=== PATIENT | female | born 1985 | race Caucasian/White ===

== ENCOUNTER 2016-04-20 09:21 | Inpatient (IN) | payer BC ==
[~2016-04-20] VITALS: Ht 165.1 cm; Wt 100.5 kg
[2016-06-13] VITALS (54 sets, daily range): BP systolic 91–133; BP diastolic 47–83; PULSE 59–123; TEMP 97.9–99.5
[2016-06-13] MEDS ORDERED: GLUCOPHAGE500 MG/TAB PO (07:39)
[2016-06-13] MEDS ORDERED: PRENATAL1 TA7 PO (07:40)
[2016-06-13 08:14] LABS: BASO % 0.4 % (0.0-2.0); EOS # 0.2 (0.0-0.7); EOS % 1.7 % (0-4.0); GRAN # 6.5 (1.4-6.5); GRAN % 66.4 % (42.2-75.2); HEMATOCRIT 36.8 % (37.0-47.0); HEMOGLOBIN 12.7 g/dl (12.5-16.0); LYMPH # 2.6 (1.2-3.4); LYMPH % 26.8 % (20.0-51.0); MEAN CELL VOLUME 90 fl (80.0-100.0); MEAN CORPUSCULAR HEMOGLOBIN 31 pg (27.0-31.0); MEAN CORPUSCULAR HGB CONC 35 g/dl (33.0-37.0); MEAN PLATELET VOLUME 11.9 fl (7.4-10.4); MONO # 0.4 (0.1-0.6); MONO % 4.2 % (1.7-9.3); PLATELET COUNT 186 K/mm3 (130-400); RED BLOOD COUNT 4.08 M/mm3 (4.10-5.30); REDCELL DISTRIBUTION WIDTH-CV 13.5 % (11.5-14.5); WHITE BLOOD COUNT 9.7 K/mm3 (4.8-10.8)
[2016-06-14 07:15] VITALS: BP 121/84; PULSE 75; TEMP 97.3
[2016-06-14 15:38] VITALS: BP 106/59; PULSE 67; TEMP 97.7
[2016-06-14 21:00] VITALS: BP 125/75; PULSE 78; TEMP 97.6
[2016-06-15] MEDS ORDERED: PERCOCET 325 MG1 TA2 PO (08:29)
[2016-06-15] MEDS ORDERED: IBU800 M1 PO (08:29)
[2016-06-15] MEDS ORDERED: BREASTPUMP (08:37)
[2016-06-15 09:30] VITALS: BP 120/80; PULSE 77; TEMP 98
== END 2016-06-15 14:15 | disposition home or self-care (01) | DRG 775 ==
LOC: LDRO 09:21 → EDSTATUS 06-11 10:52 → LDR 06-11 11:47 → LDRO 06-11 17:27 → LDR 06-13 07:02 → OB 06-13 07:02 → LDR 06-13 12:59 → OB 06-13 17:36
PROVIDERS: Obstetrics & Gynecology
PROC: 10D07Z6 Extraction of Products of Conception, Vacuum, Via Natural or Artificial Opening (ICD-10-PCS; principal; 2016-06-13)
PROC: 0KQM0ZZ Repair Perineum Muscle, Open Approach (ICD-10-PCS; 2016-06-13)
PROC: 3E033VJ Introduction of Other Hormone into Peripheral Vein, Percutaneous Approach (ICD-10-PCS; 2016-06-13)
DX: O48.0 Post-term pregnancy (principal); O75.81 Maternal exhaustion complicating labor and delivery; O70.1 Second degree perineal laceration during delivery; Z3A.40 40 weeks gestation of pregnancy; Z37.0 Single live birth
CPT/HCPCS: J2590; J2795; J7120

== ENCOUNTER → 2016-06-24 | Outpatient (CLI) | payer BC ==
[~2016-06-24] MED LIST: BREASTPUMP; GLUCOPHAGE500 MG/TAB PO; IBU800 M1 PO; PERCOCET 325 MG1 TA2 PO; PRENATAL1 TA7 PO
== END ==
LOC: OLC 11:06
DX: Z39.1 Encounter for care and examination of lactating mother (principal); Z71.89 Other specified counseling

== ENCOUNTER 2019-09-21 08:44 | Emergency (ER) | payer BC ==
[~2019-09-21] VITALS: Ht 165.1 cm; Wt 86.4 kg
[2019-09-21 08:53] VITALS: BP 124/81; TEMP 98.1
[2019-09-21] MEDS ORDERED: CALCIUM 600 PLU1 TAB PO (09:25)
[2019-09-21 09:42] LABS: BASO % 0.4 % (0.0-2.0); EOS # 0.2 (0.0-0.7); EOS % 2.8 % (0-4.0); GRAN # 4.7 (1.4-6.5); GRAN % 64.7 % (42.2-75.2); HEMATOCRIT 37.4 % (37.0-47.0); HEMOGLOBIN 12.6 g/dl (12.5-16.0); LYMPH # 1.9 (1.2-3.4); LYMPH % 26.4 % (20.0-51.0); MEAN CELL VOLUME 89 fl (80.0-100.0); MEAN CORPUSCULAR HEMOGLOBIN 30 pg (27.0-31.0); MEAN CORPUSCULAR HGB CONC 34 g/dl (33.0-37.0); MEAN PLATELET VOLUME 10.1 fl (7.4-10.4); MONO # 0.4 (0.1-0.6); MONO % 5.1 % (1.7-9.3); PLATELET COUNT 169 K/mm3 (130-400); REDCELL DISTRIBUTION WIDTH-CV 12.9 % (11.5-14.5)
[2019-09-21 10:05] LABS: ALBUMIN 4.2 gm/dL (3.5-5.0); BILIRUBIN,TOTAL 0.7 mg/dL (0.0-1.0); CREATININE, serum 0.51 (0.52-1.25); POTASSIUM 3.6 mmol/L (3.4-5.0); TOTAL PROTEIN 7.4 gm/dL (6.4-8.2)
[2019-09-21 11:40] VITALS: PULSE 82
== END 2019-09-21 11:40 | disposition home or self-care (01) ==
LOC: COL.ER 08:44
PROVIDERS: Emergency Medicine
DX: O20.0 Threatened abortion (principal); Z3A.13 13 weeks gestation of pregnancy; Z90.89 Acquired absence of other organs; Z79.84 Long term (current) use of oral hypoglycemic drugs

== ENCOUNTER → 2020-03-25 | Outpatient (CLI) | payer BC ==
[~2020-03-25] MED LIST changes: +CALCIUM 600 PLU1 TAB PO; +MOTRIN 600600 MG/TAB PO
== END | disposition still patient (30) ==
LOC: ZCOL.LAB 08:00
DX: Z20.828 Contact with and (suspected) exposure to other viral communicable diseases (principal)

== ENCOUNTER 2020-03-29 01:39 | Inpatient (IN) | payer BC ==
[2020-03-29] VITALS (13 sets, daily range): BP systolic 117–139; BP diastolic 58–94; PULSE 62–103; TEMP 97.6–98.8
[~2020-03-29] VITALS: Ht 165.1 cm; Wt 104.1 kg
--- NOTE | 2020-03-29 01:37 | NUR ---
Pt arrives on unit via bed from the ED. States contractions throughout the evening. SROM at 0000. Denies vaginal bleeding and reports GFM. SVE per this RN AL. Pt bearing down with ctx. Dr. Rodriguez notified. Requested to unit. IV started in LH. Labs drawn. LR infusing. Pt prepped for delivery. Verbal consent obtained. 0152-Dr. Rodriguez at bedside. Begins pushing with pt. 0156- of viable female attended by Dr. Rodriguez. Nuchal cord x 2. Cord clamped x 2 and cut from umbilicus. Infant dried and placed on mother's chest. Care of to Parnav Robert RN. Apgars 9. 0158- of placenta. Fundus firm at umbilicus. Bleeding WNL. Pitocin bolus infusing per protocol. Second degree laceration repaired per provider. Pericare performed. Ice pack applied. Pt updated on POC. Bed locked in low position. Call light within reach. No quesitons or concerns at this time.
[~2020-03-29 01:39] MED LIST changes: -MOTRIN 600600 MG/TAB PO
[2020-03-29 02:03] LABS: BASO % 0.3 % (0.0-2.0); EOS # 0.2 (0.0-0.7); EOS % 1.4 % (0-4.0); GRAN # 7.6 (1.4-6.5); GRAN % 70.1 % (42.2-75.2); HEMOGLOBIN 12.1 g/dl (12.5-16.0); LYMPH # 2.3 (1.2-3.4); LYMPH % 21.2 % (20.0-51.0); MEAN CELL VOLUME 85 fl (80.0-100.0); MEAN CORPUSCULAR HEMOGLOBIN 28 pg (27.0-31.0); MEAN CORPUSCULAR HGB CONC 33 g/dl (33.0-37.0); MEAN PLATELET VOLUME 11.4 fl (7.4-10.4); MONO # 0.6 (0.1-0.6); MONO % 5.9 % (1.7-9.3); PLATELET COUNT 208 K/mm3 (130-400); RED BLOOD COUNT 4.27 M/mm3 (4.10-5.30); REDCELL DISTRIBUTION WIDTH-CV 13.4 % (11.5-14.5)
[2020-03-29 02:05] LABS: HEMATOCRIT 36.2 % (37.0-47.0)
[2020-03-30 08:38] VITALS: BP 126/78; PULSE 86; TEMP 98.1
[2020-03-30] MEDS ORDERED: MOTRIN 600600 MG/TAB PO (08:47)
--- NOTE | 2020-03-30 10:25 | NUR ---
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
== END 2020-03-30 13:50 | disposition home or self-care (01) | DRG 807 ==
LOC: LDRO 01:39 → LDR 01:55 → OB 02:12
PROVIDERS: Obstetrics & Gynecology; ADMIT Obstetrics & Gynecology
PROC: 10E0XZZ Delivery of Products of Conception, External Approach (ICD-10-PCS; principal; 2020-03-29)
PROC: 0KQM0ZZ Repair Perineum Muscle, Open Approach (ICD-10-PCS; 2020-03-29)
DX: O48.0 Post-term pregnancy (principal); Z37.0 Single live birth; O69.81X0 Labor and delivery complicated by cord around neck, without compression, not applicable or unspecified; O70.1 Second degree perineal laceration during delivery; Z3A.40 40 weeks gestation of pregnancy
CPT/HCPCS: J2590; J7120